=== PATIENT | female | born 1985 | race Caucasian/White ===

== ENCOUNTER 2019-12-08 09:03 | Outpatient (CLI) | payer BC ==
--- NOTE | 2019-12-08 21:31 | RAD ---
LUMBAR SPINE THREE VIEWS: 12/08/19 Comparison is made with a 03/23/19 sacral film. No fracture, dislocation, or acute bony change was seen. No bony anomalies of concern were found. The re may be some minimal disc space narrowing at L5-S1 but is no different than before. The SI joints a re symmetrical. The visible portions of the sacrum (not all parts were seen well) showed no abnormali ty. IMPRESSION: No acute finding. POS: HOME
== END 2019-12-08 09:04 | disposition home or self-care (01) ==
LOC: BURRAD 09:03
PROVIDERS: ATTEND Family Medicine
DX: M54.5 Low back pain (principal)
CPT/HCPCS: 72100